=== PATIENT | female | born 1965 | race Caucasian/White ===

== ENCOUNTER 2018-10-22 06:53 | Day surgery (SDC) | payer BC ==
[2018-10-22] MEDS ORDERED: Propofol 200 MG/20 ML SDV ONE (07:05)
[2018-10-22] MEDS ORDERED: Midazolam 1 MG/ML 2 ML SDV ONE (07:05)
[2018-10-22] MEDS ORDERED: fentaNYL 100 MCG/2 ML SDV ONE (07:05)
[2018-10-22] MEDS ORDERED: Lactated Ringers 1,000 ML IV SCH (07:30)
--- NOTE | 2018-10-22 09:44 | OR ---
DATE OF PROCEDURE: 10/22/2018 PREOPERATIVE DIAGNOSIS: Hematemesis POSTOPERATIVE DIAGNOSES: Hematemesis, mild gastritis, duodenitis. PROCEDURE PERFORMED: Esophagogastroduodenoscopy with antral biopsies for CLOtest, sent for pathology to look for Helicobacter pylori. SURGEON: Perez Guan MD ANESTHESIA: IV anesthesia with monitored anesthesia care. INDICATION: This 53-year-old white female was referred for upper endoscopy because of hematemesis. She says she spit up some blood. I counseled her for upper endoscopy with possible biopsy, including risks and alternatives, and she gave her informed consent to proceed. DESCRIPTION OF PROCEDURE: The patient was placed in the left lateral decubitus position. IV anesthesia was administered by the Anesthesia Service. Time-out was held. The flexible video Olympus upper endoscope was passed through her mouth, down her esophagus, and into her stomach. The scope was easily passed through the pylorus, into the duodenum, reaching its third portion. The scope was then slowly withdrawn, examining the mucosa throughout. The distal duodenum appeared unremarkable. There was some erythema in the duodenal bulb, consistent with duodenitis. The scope was brought back up through the pylorus. There was mild erythema present, suggestive of mild gastritis. We obtained antral biopsies for CLOtest, sent for pathology to look for Helicobacter pylori. The scope was retroflexed. The proximal stomach appeared unremarkable. The scope was straightened and brought up to the GE junction, which appeared unremarkable and then up through the unremarkable appearing esophagus and was removed, and at no point did we see anything that we would expect to bleed, nor did we see any old or new blood anywhere in the upper gastrointestinal tract. She tolerated the procedure well. Perez Guan MD /[id number]
[2018-10-22 09:47] VITALS: BP 121/70
== END 2018-10-22 10:02 | disposition home or self-care (01) ==
LOC: JP.SDS 06:53
PROVIDERS: ATTEND Surgery
DX: K29.71 Gastritis, unspecified, with bleeding (principal); K29.81 Duodenitis with bleeding; F17.200 Nicotine dependence, unspecified, uncomplicated
CPT/HCPCS: 43239; 87081; J2250; J2704; J3010; J7120